=== PATIENT | female | born 2000 | race Caucasian/White ===

== ENCOUNTER 2021-07-15 12:53 | Inpatient (IN) ==
[2021-07-15] MEDS ORDERED: Naloxone 0.4 MG/ML INJ IVP PRN (13:19)
[2021-07-15] MEDS ORDERED: Metoclopramide 10 MG/2 ML VIAL IVP PRN (13:19)
[2021-07-15] MEDS ORDERED: Famotidine 20 MG/2 ML VIAL IVP PRN (13:19)
[2021-07-15 14:37] LABS: Influenza A PCR Negative (Negative); Influenza B PCR Negative (Negative); Resp. Syncytial Virus PCR Negative (Negative)
[2021-07-15 14:43] LABS: Basophils % 0.2 %; Eosinophils % 0.5 %; Hematocrit 36.7 % (35.3-44.9); Hemoglobin 12.2 g/dL (11.5-15.4); Immature Granulocytes % 0.6 % (0-4); Lymphocytes # 1.3 K/mcL (0.6-4.6); Lymphocytes % 15.4 %; Mean Corpuscular HGB Conc 33.2 g/dL (31.6-35.5); Mean Corpuscular Hemoglobin 27.7 pg (28.0-33.3); Mean Corpuscular Volume 83.2 fL (83.0-100.0); Mean Platelet Volume 12.1 fL (9.4-12.4); Monocytes # 0.8 K/mcL (0.0-1.3); Monocytes % 8.7 %; Neutrophils # 6.4 K/mcL (1.6-8.9); Platelet Count 185 K/mcL (140-400); Red Blood Count 4.41 M/mcL (3.82-4.97); Red Cell Distribution Width 13.9 % (11.5-14.5); Segmented Neutrophils % 74.6 %; White Blood Count 8.6 K/mcL (4.3-11.1)
[2021-07-15 14:48] LABS: Amphetamine Screen,Urine Negative ng/mL (Cutoff=1000); Barbiturate Screen,Urine Negative ng/mL (Cutoff=200); Benzodiazepines Screen,Urine Negative ng/mL (Cutoff=200); Cannabinoid Screen,Urine Negative ng/mL (Cutoff = 50); Cocaine Screen,Urine Negative ng/mL (Cutoff= 300); Opiate Screen,Urine Negative ng/mL (Cutoff=300); Phencyclidine Screen,Urine Negative ng/mL (Cutoff=25)
[2021-07-15] MEDS ORDERED: Ringers Solution, Lactated 1,000 ML IVC SCH (15:00)
[2021-07-15 16:05] LABS: SARS-CoV-2 by PCR (In House) Negative (Negative)
[2021-07-15] MEDS ORDERED: Chloroprocaine 3%/PF 20 ML VIAL INFILT ONE (19:27)
[2021-07-15] MEDS ORDERED: Oxytocin 30 UNIT/503 ML BAG IVC ONE (21:01)
[2021-07-15] MEDS ORDERED: *HR* Morphine Sulfate/PF 10 MG/10 ML AMPUL ONE (21:02)
[2021-07-15] MEDS ORDERED: Ketorolac 30 MG/ML VIAL ONE (21:10)
[2021-07-15] MEDS ORDERED: Acetaminophen IV 1,000 MG/100 ML BAG IVPB ONE (21:10)
[2021-07-15] MEDS ORDERED: *HR* OxyCODONE Immed Rel 5 MG TABLET PO PRN (21:16)
[2021-07-15] MEDS ORDERED: Acetaminophen IV 1,000 MG/100 ML BAG IVPB PRN (21:16)
[2021-07-15] MEDS ORDERED: Ondansetron 4 MG/2 ML VIAL IVP PRN (21:16)
[2021-07-15] MEDS ORDERED: *HR* HYDROmorphone PF 0.5 MG/0.5 ML SYRINGE IVP PRN (21:16)
[2021-07-16] MEDS ORDERED: *HR* OxyCODONE Immed Rel 5 MG TABLET PO PRN (00:04)
[2021-07-16] MEDS ORDERED: Simethicone 80 MG TAB.CHEW PO PRN (00:04)
[2021-07-16] MEDS ORDERED: Ondansetron 4 MG/2 ML VIAL IVP PRN (00:04)
[2021-07-16] MEDS ORDERED: Oxytocin 30 UNIT/503 ML BAG IVC SCH (00:04)
[2021-07-16] MEDS ORDERED: Metoclopramide 10 MG/2 ML VIAL IVP PRN (00:04)
[2021-07-16] MEDS ORDERED: Ringers Solution, Lactated 1,000 ML IVC SCH (00:04)
[2021-07-16] MEDS ORDERED: Rho Immune Globulin 1,500 UNIT SYRINGE IM ONE (00:04)
[2021-07-16] MEDS ORDERED: Naloxone 0.4 MG/ML INJ IVP PRN (00:04)
[2021-07-16] MEDS: Ibuprofen 600 MG TABLET PO SCH ×3 (03:30→20:51)
[2021-07-16] MEDS: Acetaminophen 325 MG TABLET PO SCH ×2 (03:30→20:51)
[2021-07-16 06:00] LABS: Basophils % 0.2 %; Eosinophils % 0.2 %; Hematocrit 35.4 % (35.3-44.9); Hemoglobin 11.6 g/dL (11.5-15.4); Immature Granulocytes % 0.4 % (0-4); Lymphocytes # 0.9 K/mcL (0.6-4.6); Lymphocytes % 7.2 %; Mean Corpuscular HGB Conc 32.8 g/dL (31.6-35.5); Mean Corpuscular Hemoglobin 27.4 pg (28.0-33.3); Mean Corpuscular Volume 83.7 fL (83.0-100.0); Mean Platelet Volume 12.6 fL (9.4-12.4); Monocytes # 0.9 K/mcL (0.0-1.3); Monocytes % 7.5 %; Neutrophils # 10.2 K/mcL (1.6-8.9); Platelet Count 173 K/mcL (140-400); Red Blood Count 4.23 M/mcL (3.82-4.97); Red Cell Distribution Width 13.8 % (11.5-14.5); Segmented Neutrophils % 84.5 %; White Blood Count 12.1 K/mcL (4.3-11.1)
[2021-07-16] MEDS: Prenatal Vit/FA 1 EACH TABLET PO SCH (09:45)
[2021-07-17] MEDS: Acetaminophen 325 MG TABLET PO SCH ×2 (02:46→08:47)
[2021-07-17] MEDS: Ibuprofen 600 MG TABLET PO SCH ×2 (02:46→08:47)
[2021-07-17 07:31] VITALS: BP 117/71; PULSE 75; TEMP 97.7; O2SAT 98
[2021-07-17] MEDS: Prenatal Vit/FA 1 EACH TABLET PO SCH (07:40)
== END 2021-07-17 09:30 | disposition home or self-care (01) | DRG 788 ==
LOC: 1NENULAB 12:53 → 1NENUOBS 07-16 03:28
PROVIDERS: ADMIT Obstetrics & Gynecology; ATTEND Obstetrics & Gynecology